=== PATIENT | female | born 1940 | race Caucasian/White ===

== ENCOUNTER 2017-07-05 11:32 | Emergency (ER) | payer BC, OTHER ==
[~2017-07-05] VITALS: Ht 162.6 cm; Wt 62.8 kg
[2017-07-05 11:40] VITALS: TEMP 37.2; Ht 162.6 cm; Wt 62.8 kg
[2017-07-05] MEDS ORDERED: SODIUM CHLORIDE 0.9% 1000ML 500 ML IV STA (11:48)
[2017-07-05] MEDS ORDERED: ALBUT/IPRATROP 3MG/0.5MG NEB 3 ML VIAL INH STA (11:48)
[2017-07-05] MEDS ORDERED: BENZONATATE 100MG CAP PO ONE (12:00)
--- NOTE | 2017-07-05 12:03 | EMERGENCY ROOM VISIT NOTE ---
History Report prepared by Chandrika: Phoebe Fletcher Under the Supervision of: Dr. Jerel Sparks M.D. First contact with patient: 11:45 Chief Complaint: FLU LIKE SX Stated Complaint: FLU History of Present Illness The patient is a 77 year old female who presents to the Emergency Room with complaints of worsening flu-like symptoms beginning six days ago. The patient reports a productive cough with yellow mucus, nasal congestion, left ear pain, and a low grade fever. She denies any shortness of breath. She states she has not been drinking a lot fluids over the past six days. The patient states her symptoms worsen at night. The patient states she had a flu shot this year. She states she has had some sick contacts. The patient denies any history of asthma , pneumonia, or COPD. Source of History: patient Onset: six days ago Position: other (generalized) Quality: other (flu like symptoms) Timing: worsening Modifying Factors (Worsening): other (at night time) Associated Symptoms: + fevers, + cough, No SOB Review of Systems See HPI for pertinent positives & negatives. A total of 10 systems reviewed and were otherwise negative. Past Medical & Surgical Medical Problems: (1) No Known Active Medical Problems Family History Patient reports no known family medical history. Social History Smoking Status: Former Smoker Marital Status: single Housing Status: lives with significant other Current/Historical Medications Scheduled Albuterol Hfa (Ventolin Hfa), 2 PUFFS INH Q4 Azithromycin (Zithromax Z-Ulisses), 0 PO UD Benzonatate (Tessalon Perles), 100 MG PO TID Esomeprazole Magnesium (Nexium), 40 MG PO DAILY Losartan Potassium (Cozaar), 1 TAB PO DAILY Multiple Vitamin (Multivitamin), 1 TAB PO DAILY Piroxicam (Piroxicam), 1 CAP PO DAILY Rosuvastatin Calcium (Crestor), 1 TAB PO DAILY Miscellaneous Medications Saxagliptin-Metformin HCl (Kombiglyze Xr) Allergies Coded Allergies: Epinephrine (Unverified Allergy, Unknown, unknown, 07/05/17) Physical Exam Vital Signs Date Time Temp Pulse Resp B/P (MAP) Pulse Ox O2 Delivery O2 Flow Rate FiO2 07/05/17 14:30 82 16 146/68 95 07/05/17 12:49 83 07/05/17 12:45 78 18 138/87 96 Room Air 07/05/17 11:40 37.2 90 18 150/76 93 Room Air Physical Exam GENERAL: Patient is in no acute distress. HEENT: No acute trauma, normocephalic atraumatic, mucous membranes moist, no nasal congestion, no scleral icterus. No throat erythema or exudate, TM clear bilaterally. NECK: No stridor, no adenopathy, no meningismus, trachea is midline. LUNGS: Scattered wheezing bilaterally, breath sounds equal, no crackles, no reparatory distress. HEART: Without murmurs gallops or rubs, regular rate and rhythm. ABDOMEN: Soft, nontender, bowel sounds positive, no hernias, no peritonitis. EXTREMITIES: No cyanosis or edema, full range of motion of all the joints without pain or difficulty, no signs for acute trauma. NEUROLOGIC: Oriented x 3, no acute motor or sensory deficits, no focal weakness. SKIN: No rash, no jaundice, no diaphoresis. Medical Decision & Procedures ER Provider Diagnostic Interpretation: Radiology results as stated below per my review and radiologist interpretation: CHEST ONE VIEW PORTABLE FINDINGS: Atherosclerosis of the aortic arch. Cardiac silhouette normal in size. Lungs and pleural spaces clear. Osseous structures normal. Upper abdomen normal. IMPRESSION: 1. No acute cardiopulmonary disease. Electronically signed by: Lázaro Pizarro M.D. Laboratory Results 07/05/17 12:22 Red Blood Count 4.47, Mean Corpuscular Volume 95.1, Mean Corpuscular Hemoglobin 33.1, Mean Corpuscular Hemoglobin Concent 34.8, Mean Platelet Volume 9.8, Neutrophils (%) (Auto) 77.4, Lymphocytes (%) (Auto) 12.0, Monocytes (%) (Auto) 9.6, Eosinophils (%) (Auto) 0.2, Basophils (%) (Auto) 0.4, Neutrophils # (Auto) 7.96, Lymphocytes # (Auto) 1.23, Monocytes # (Auto) 0.99, Eosinophils # (Auto) 0.02, Basophils # (Auto) 0.04 07/05/17 12:22 Test 07/05/17 00:00 07/05/17 12:22 Influenza Type A Antigen Neg for Influ A (NEG) Influenza Type B Antigen Neg for Influ B (NEG) White Blood Count 10.28 K/uL (4.8-10.8) Red Blood Count 4.47 M/uL (4.2-5.4) Hemoglobin 14.8 g/dL (12.0-16.0) Hematocrit 42.5 % (37-47) Mean Corpuscular Volume 95.1 fL (80-100) Mean Corpuscular Hemoglobin 33.1 pg (25-34) Mean Corpuscular Hemoglobin Concent 34.8 g/dl (32-36) Platelet Count 204 K/uL (130-400) Mean Platelet Volume 9.8 fL (7.4-10.4) Neutrophils (%) (Auto) 77.4 % Lymphocytes (%) (Auto) 12.0 % Monocytes (%) (Auto) 9.6 % Eosinophils (%) (Auto) 0.2 % Basophils (%) (Auto) 0.4 % Neutrophils # (Auto) 7.96 K/uL (1.4-6.5) Lymphocytes # (Auto) 1.23 K/uL (1.2-3.4) Monocytes # (Auto) 0.99 K/uL (0.11-0.59) Eosinophils # (Auto) 0.02 K/uL (0-0.5) Basophils # (Auto) 0.04 K/uL (0-0.2) RDW Standard Deviation 40.0 fL (36.4-46.3) RDW Coefficient of Variation 11.6 % (11.5-14.5) Immature Granulocyte % (Auto) 0.4 % Immature Granulocyte # (Auto) 0.04 K/uL (0.00-0.02) Anion Gap 8.0 mmol/L (3-11) Est Creatinine Clear Calc Drug Dose 46.5 ml/min Estimated GFR () 73.0 Estimated GFR (Non- 63.0 BUN/Creatinine Ratio 18.7 (10-20) Calcium Level 9.3 mg/dl (8.5-10.1) Magnesium Level 2.4 mg/dl (1.8-2.4) Troponin I < 0.015 ng/ml (0-0.045) Laboratory results reviewed by me. Medications Administered Medications (Trade) Dose Ordered Sig/Nasrin Route Start Time Stop Time Status Last Admin Dose Admin Sodium Chloride 500 ml @ 999 mls/hr Q31M STAT IV 07/05/17 11:48 07/05/17 12:18 DC 07/05/17 12:59 999 MLS/HR Albuterol/ Ipratropium (Duoneb) 3 ml NOW STAT INH 07/05/17 11:48 07/05/17 11:53 DC 07/05/17 12:58 3 ML Benzonatate (Tessalon Perles Cap) 100 mg NOW ONCE PO 07/05/17 12:00 07/05/17 12:01 DC 07/05/17 12:59 100 MG Sodium Chloride 500 ml @ 999 mls/hr Q31M STAT IV 07/05/17 13:11 07/05/17 13:41 DC 07/05/17 13:59 999 MLS/HR Albuterol (Ventolin Hfa Inhaler) 2 puffs NOW ONCE INH 07/05/17 13:15 07/05/17 13:16 DC 07/05/17 13:59 2 PUFFS ECG Indication: SOB/dyspnea Rate (beats per minute): 80 Rhythm: normal sinus Findings: no acute ischemic change, no ectopy Change: EKG interpreted by me. ED Course 1146: The patient was evaluated in room C11B. A complete history and physical exam was performed. 1148: Ordered Duoneb 3 ml INH, Sodium Chloride 500 ml @ 999 mls/hr IV. 1200: Ordered Benzonatate 100 mg PO. 1311: Ordered Sodium Chloride 500 ml @ 999 mls/hr IV. 1315: Ordered Albuterol 2 puffs INH. 1336: I updated the patient on her test results. She is resting comfortably. 1347: Reevaluated the patient. Discussed results and discharge instructions: She verbalized understanding and agreement. The patient is ready for discharge. Medical Decision Differential diagnoses: bronchitis, pneumonia, CHF, influenza or flu-like symptoms, dehydration, otitis media, cardiac ischemia . There is no leukocytosis or worrisome anemia. No significant electrolyte abnormality or kidney failure. I did note a mildly elevated blood sugar, this value should be followed as an outpatient but I do not think has any bearing on her presentation today. Influenza testing was negative. Chest film does not show pneumonia or pneumothorax, no CHF. Blood cultures are pending. EKG shows a normal sinus rhythm, no acute ischemia. Cardiac enzyme testing times one is not consistent with acute cardiac injury. The patient received a DuoNeb, albuterol via MDI. She was given IV saline and oral Tessalon. The patient is not hypoxic. She is not toxic. She is being discharged with albuterol, Tessalon Perles, rest and hydration. As she has been sick for about one week, I will also prescribe antibiotics. She appears at this point to have an acute bronchitis. If worsening, she should return. Medication Reconcilliation Current Medication List: was personally reviewed by me Blood Pressure Screening Patient's blood pressure: Elevated blood pressure Blood pressure disposition: Referred to PCP Impression Primary Impression: Acute bronchitis Additional Impression: Wheezing Scribe Attestation The scribe's documentation has been prepared under my direction and personally reviewed by me in its entirety. I confirm that the note above accurately reflects all work, treatment, procedures, and medical decision making performed by me. Departure Information Dispostion Home / Self-Care Prescriptions Benzonatate (TESSALON PERLES) 100 Mg Cap 100 MG PO TID, #15 CAP Prov: Jerel Sparks M.D. 07/05/17 Albuterol Hfa (VENTOLIN HFA) 200 Puffs/20361 Mcg Aers 2 PUFFS INH Q4, #1 INHALER Prov: Jerel Sparks M.D. 07/05/17 Azithromycin (ZITHROMAX Z-ULISSES) 250 Mg Tab 0 PO UD, #1 PKT Prov: Jerel Sparks M.D. 07/05/17 Referrals Sol Jameson M.D. (PCP) Forms HOME CARE DOCUMENTATION FORM, IMPORTANT VISIT INFORMATION Patient Instructions My [facility] Additional Instructions zpa as directed albuterol 2 puffs every 4 hours fluids rest tessalon perles 1 tab up to 3x per day for cough return for worsening symptoms, worsening breathing, vomiting see hardik lebron this week for a recheck have your doctor recheck your blood sugar--it was a little high today Problem Qualifiers
--- NOTE | 2017-07-05 12:25 | DIAGNOSTIC IMAGING REPORT ---
CHEST ONE VIEW PORTABLE CLINICAL HISTORY: 77 years-old Female presenting with EVALUATE RESPIRATORY DISTRESS.DYSPNEA. TECHNIQUE: Portable upright AP view of the chest was obtained. COMPARISON: None. FINDINGS: Atherosclerosis of the aortic arch. Cardiac silhouette normal in size. Lungs and pleural spaces clear. Osseous structures normal. Upper abdomen normal. IMPRESSION: 1. No acute cardiopulmonary disease. Electronically signed by: Lázaro Pizarro M.D. 07/05/2017 12:23 PM Dictated Date/Time: 07/05/2017 12:22 PM
[2017-07-05] MEDS ORDERED: ROSU5TAB PO (12:49)
[2017-07-05] MEDS ORDERED: NXM/40 PO (12:49)
[2017-07-05] MEDS ORDERED: LOSA1TAB PO (12:50)
[2017-07-05] MEDS ORDERED: SAXA1TAB5 (12:50)
[2017-07-05] MEDS ORDERED: MULTTAB58 PO (12:50)
[2017-07-05] MEDS ORDERED: PIRO-104 PO (12:50)
[2017-07-05 12:54] LABS: BASO % 0.4 %; BASO ABS # 0.04 K/uL (0-0.2); EOS % 0.2 %; EOS ABS # 0.02 K/uL (0-0.5); HEMATOCRIT 42.5 % (37-47); HEMOGLOBIN 14.8 g/dL (12.0-16.0); IG# 0.04 K/uL (0.00-0.02); LYMPH ABS # 1.23 K/uL (1.2-3.4); MEAN CELL VOLUME 95.1 fL (80-100); MEAN CORPUSCULAR HEMOGLOBIN 33.1 pg (25-34); MEAN CORPUSCULAR HGB CONC 34.8 g/dl (32-36); MEAN PLATELET VOLUME 9.8 fL (7.4-10.4); MONO % 9.6 %; MONO ABS # 0.99 K/uL (0.11-0.59); NEUT % 77.4 %; NEUT ABS # 7.96 K/uL (1.4-6.5); PLATELET COUNT 204 K/uL (130-400); RED CELL DISTRIBUTION WIDTH CV 11.6 % (11.5-14.5); WHITE BLOOD COUNT 10.28 K/uL (4.8-10.8)
[2017-07-05 13:01] LABS: INFLUENZA B ANTIGEN Neg for Influ B (NEG)
[2017-07-05 13:07] LABS: BLOOD UREA NITROGEN 17 mg/dl (7-18); CALCIUM 9.3 mg/dl (8.5-10.1); CARBON DIOXIDE 28 mmol/L (21-32); CREATININE 0.89 mg/dl (0.60-1.20); GLUCOSE 207 mg/dl (70-99); POTASSIUM 3.8 mmol/L (3.5-5.1); SODIUM 133 mmol/L (136-145)
[2017-07-05] MEDS ORDERED: SODIUM CHLORIDE 0.9% 500ML 500 ML IV STA (13:11)
[2017-07-05] MEDS ORDERED: ALBUTEROL HFA 8 GM INHALER INH ONE (13:15)
[2017-07-05] MEDS ORDERED: AZITTAB PO (13:42)
[2017-07-05] MEDS ORDERED: VNTHFA/IN INH (13:42)
[2017-07-05] MEDS ORDERED: BENZ100C18 PO (13:42)
[2017-07-05 14:30] VITALS: BP 146/68; PULSE 82; O2SAT 95
== END 2017-07-05 14:29 | disposition home or self-care (01) ==
LOC: C.EDB 11:33 → C.EDC 14:29
DX: J20.9 Acute bronchitis, unspecified (principal); R73.9 Hyperglycemia, unspecified; R03.0 Elevated blood-pressure reading, without diagnosis of hypertension; Z87.891 Personal history of nicotine dependence

== ENCOUNTER 2022-06-22 15:48 | Observation (INO) ==
--- NOTE | 2022-06-22 16:31 | Emergency Department Note ---
Impression & Plan Chest pain, Near syncope, Bilateral pneumonia ED Provider Note ED Provider Note NAME: SWETA VILLASEÑOR AGE:82 SEX: Female : 1940 ARRIVES VIA: Ambulance INFORMANT: Patient ED PROVIDER(s): Veronica Smith DO CHIEF COMPLAINT: Chest pain HPI: This is an 82-year-old female brought in by ambulance due to concern for chest pain. Patient states she has been sick since shortly after Ariana. She states she was seen and evaluated here last week and diagnosed with bronchitis. She states she was started on antibiotics and steroids and discharged home. She states she has continued to have increased fatigue. She states today while out running errands with her who she cares for because he is demented, she began feeling more fatigued as though she may pass out. She states while driving home she began develop chest pressure. She denies any actual loss of consciousness. She contacted family who then called 911. Patient states she did take 2 low-dose aspirin prior to EMS arrival, and EMS gave her additional aspirin in route. By time of arrival here, chest pressure had resolved. She denies any radiation of the pain, any accompanying shortness of breath or diaphoresis. She denies any nausea. No prior cardiac history. PAST MEDICAL HISTORY:See Below PAST SURGICAL HISTORY:See Below FAMILY HISTORY:See Below SOCIAL HISTORY:See Below HOME MEDICATIONS:See Below ALLERGIES:See Below VITALS:See Below PHYSICAL EXAMINATION: GENERAL: alert, well appearing, well nourished, no distress, non-toxic EYE EXAM: normal conjunctiva, PERRL and EOM's grossly intact OROPHARYNX: no exudate, no erythema, lips, buccal mucosa, and tongue normal and mucous membranes are moist NECK: supple, no nuchal rigidity, no adenopathy, non-tender LUNGS: Clear to auscultation. Normal chest wall mechanics, no w/r/r, no increased work of breathing, no tachypnea HEART: no murmurs, S1 normal and S2 normal, no reproducible tenderness with palpation along the chest wall ABDOMEN: abdomen soft, non-tender, normo-active bowel sounds, no masses, no rebound or guarding. BACK: Back is symmetrical on inspection and there is no deformity, no midline tenderness, no CVA tenderness. SKIN: no rashes, petechiae, orbruising UPPER EXTREMITIES: upper extremities are grossly normal. FROM, nml pulses b/l. LOWER EXTREMITIES: No pitting edema. FROM, nml pulses b/l. NEURO EXAM: Normal sensorium, cranial nerves II-XII grossly intact, normal speech, no facial droop,nogross weakness of arms, no gross weakness of legs. Gross sensation intact. No ataxia. Vital Signs: reviewed and remarkable Differential Diagnosis: Differential diagnoses includes but is not limited to acute coronary syndrome, myocardial infarction, pericarditis, pulmonary embolus, aortic dissection, pneumonia, pneumothorax, musculoskeletal, shingles, esophageal. MEDICAL DECISION MAKING: CURB 65 - moderate risk This is an 82-year-old female presents emergency department due to concern for chest pressure and near syncope today. Patient seen and evaluated recent and diagnosed with bronchitis versus early pneumonia and started on antibiotics and steroids. Symptoms had improved by the time of my evaluation here. Labs drawn and sent, IV established, patient monitored on telemetry. EKG performed. After discussion at bedside and review of prior visit in EMR with patient and family at bedside, we discussed possible differential diagnosis. Patient with no prior cardiac history. Exam not consistent with acute CHF, EKG interpreted by me without acute changes to suggest ACS. Patient found to have elevated D-dimer and elevated BNP. Troponin mildly elevated also. Patient sent for CT chest which showed bilateral pneumonia. Due to advanced age and elevated curb 65 score, symptoms today including chest pressure and near syncope, and symptoms following more than 48 hours of antibiotics at this time, we discussed additional inpatient evaluation and management as a precaution. Patient and family verbalized understanding and were in agreement with the plan. Case discussed with hospitalist for additional evaluation and management. Consultation(s): 2229: Discussed with Dr. Lamb for admission. ER Treatment Provided: See below Diagnostics Interpreted By Me: -ECG: Normal sinus at 69, normal QRS and QTc, normal axis, no acute ST/T wave changes, aberrant baseline noted -Cardiac Monitoring: An order was placed for continuous cardiac monitoring. The monitor shows a rate of 72 with normal sinus rhythm. -Laboratory studies: As stated above and show below. -Imaging studies: CT chest Triage Nursing Note Reviewed Prior/Outside Records Reviewed Procedures: [] Critical Care: [] Past Med/Surg History Medical History Hypertension Type 2 diabetes mellitus Family History Other Family history non-contributory Social History Smoking Status: Former smoker Second Hand Exposure: No; Hx Alcohol Use: No Hx Substance Use: No Preferred Language: Persian Communication Ability: Effective Cargo Router Required: No Beliefs That Will Affect Care: None Current Living Situation: Spouse Feels Safe at Home: Yes Assistive Devices: Denture - Upper Allergies Allergies Allergy/AdvReac Type Severity Reaction Status Date / Time epinephrine Allergy SVT Unverified 06/22/22 16:15 Home Meds Home Medications Medication Instructions Recorded Confirmed cholecalciferol (vitamin D3) 50 50 mcg PO BID 06/20/22 06/22/22 mcg (2,000 unit) tablet (Vitamin D3) losartan 50 mg tablet 50 mg PO QAM 06/20/22 06/22/22 sitagliptin phosphate 50 mg tablet 50 mg PO DAILY 06/20/22 06/22/22 (Januvia) Previous Rx's Medication Instructions Recorded aspirin 81 mg tablet,delayed 81 mg PO QAM 30 days #30 tabs 06/23/22 release benzonatate 100 mg capsule 100 mg PO TID #30 caps 06/23/22 doxycycline hyclate 100 mg capsule 100 mg PO BID 8 days #16 caps 06/23/22 Results & Data (ED) Vital Signs Vital Signs - 24 hr 06/22/22 16:02 06/22/22 16:02 06/22/22 16:10 Temperature 36.8 C Temperature Source Oral Pulse Rate 94 H 86 78 Pulse Rate from SpO2 Sensor 85 79 Pulse Rhythm Regular Pulse Strength Normal Respiratory Rate 18 19 16 Respiratory Effort / Characteristics Non-Labored Spontaneous Respiratory Depth Normal Respiratory Pattern Regular Blood Pressure 181/78 H Blood Pressure Mean 112 Blood Pressure Position Lying Pulse Oximetry 96 97 96 Oxygen Delivery Method Room Air Room Air Room Air Sepsis Recent Fever Within 48 Hours No Sepsis New/Unexplained Change in Mental Status No Sepsis Action Taken by Nursing No Action Required 06/22/22 16:20 06/22/22 16:30 06/22/22 16:30 Temperature Temperature Source Pulse Rate 72 74 Pulse Rate from SpO2 Sensor 73 Pulse Rhythm Pulse Strength Respiratory Rate 17 16 Respiratory Effort / Characteristics Respiratory Depth Respiratory Pattern Blood Pressure 147/67 H Blood Pressure Mean 93 Blood Pressure Position Pulse Oximetry 95 Oxygen Delivery Method Room Air Sepsis Recent Fever Within 48 Hours Sepsis New/Unexplained Change in Mental Status Sepsis Action Taken by Nursing 06/22/22 16:40 06/22/22 16:50 06/22/22 17:00 Temperature Temperature Source Pulse Rate 78 76 73 Pulse Rate from SpO2 Sensor 78 74 Pulse Rhythm Pulse Strength Respiratory Rate 24 15 20 Respiratory Effort / Characteristics Respiratory Depth Respiratory Pattern Blood Pressure Blood Pressure Mean Blood Pressure Position Pulse Oximetry 95 96 Oxygen Delivery Method Sepsis Recent Fever Within 48 Hours Sepsis New/Unexplained Change in Mental Status Sepsis Action Taken by Nursing 06/22/22 17:10 06/22/22 17:20 06/22/22 17:33 Temperature Temperature Source Pulse Rate 72 72 81 Pulse Rate from SpO2 Sensor 79 Pulse Rhythm Pulse Strength Respiratory Rate 22 13 20 Respiratory Effort / Characteristics Respiratory Depth Respiratory Pattern Blood Pressure Blood Pressure Mean Blood Pressure Position Pulse Oximetry 96 Oxygen Delivery Method Sepsis Recent Fever Within 48 Hours Sepsis New/Unexplained Change in Mental Status Sepsis Action Taken by Nursing 06/22/22 17:34 06/22/22 17:34 06/22/22 17:40 Temperature Temperature Source Pulse Rate 72 77 Pulse Rate from SpO2 Sensor 72 74 Pulse Rhythm Pulse Strength Respiratory Rate 16 16 Respiratory Effort / Characteristics Respiratory Depth Respiratory Pattern Blood Pressure 177/72 H Blood Pressure Mean 107 Blood Pressure Position Pulse Oximetry 96 96 Oxygen Delivery Method Sepsis Recent Fever Within 48 Hours Sepsis New/Unexplained Change in Mental Status Sepsis Action Taken by Nursing 06/22/22 17:50 06/22/22 18:00 06/22/22 18:00 Temperature Temperature Source Pulse Rate 67 67 Pulse Rate from SpO2 Sensor 68 Pulse Rhythm Pulse Strength Respiratory Rate 17 14 Respiratory Effort / Characteristics Respiratory Depth Respiratory Pattern Blood Pressure 145/71 H Blood Pressure Mean 95 Blood Pressure Position Pulse Oximetry 95 95 Oxygen Delivery Method Sepsis Recent Fever Within 48 Hours Sepsis New/Unexplained Change in Mental Status Sepsis Action Taken by Nursing 06/22/22 18:10 06/22/22 18:20 06/22/22 18:30 Temperature Temperature Source Pulse Rate 74 77 Pulse Rate from SpO2 Sensor 74 77 Pulse Rhythm Pulse Strength Respiratory Rate 19 20 Respiratory Effort / Characteristics Respiratory Depth Respiratory Pattern Blood Pressure 151/74 H Blood Pressure Mean 99 Blood Pressure Position Pulse Oximetry 95 95 Oxygen Delivery Method Sepsis Recent Fever Within 48 Hours Sepsis New/Unexplained Change in Mental Status Sepsis Action Taken by Nursing 06/22/22 18:30 06/22/22 18:40 06/22/22 18:50 Temperature Temperature Source Pulse Rate 72 73 84 Pulse Rate from SpO2 Sensor 71 73 85 Pulse Rhythm Pulse Strength Respiratory Rate 19 15 15 Respiratory Effort / Characteristics Respiratory Depth Respiratory Pattern Blood Pressure Blood Pressure Mean Blood Pressure Position Pulse Oximetry 95 95 94 Oxygen Delivery Method Sepsis Recent Fever Within 48 Hours Sepsis New/Unexplained Change in Mental Status Sepsis Action Taken by Nursing 06/22/22 19:00 06/22/22 19:00 06/22/22 19:30 Temperature Temperature Source Pulse Rate 77 Pulse Rate from SpO2 Sensor 78 Pulse Rhythm Pulse Strength Respiratory Rate 26 H Respiratory Effort / Characteristics Respiratory Depth Respiratory Pattern Blood Pressure 135/67 155/70 H Blood Pressure Mean 89 98 Blood Pressure Position Pulse Oximetry 95 Oxygen Delivery Method Sepsis Recent Fever Within 48 Hours Sepsis New/Unexplained Change in Mental Status Sepsis Action Taken by Nursing 06/22/22 19:30 06/22/22 19:40 06/22/22 19:50 Temperature Temperature Source Pulse Rate 72 72 79 Pulse Rate from SpO2 Sensor 73 72 79 Pulse Rhythm Pulse Strength Respiratory Rate 10 L 18 20 Respiratory Effort / Characteristics Respiratory Depth Respiratory Pattern Blood Pressure Blood Pressure Mean Blood Pressure Position Pulse Oximetry 95 95 95 Oxygen Delivery Method Sepsis Recent Fever Within 48 Hours Sepsis New/Unexplained Change in Mental Status Sepsis Action Taken by Nursing 06/22/22 20:00 06/22/22 20:00 06/22/22 20:10 Temperature Temperature Source Pulse Rate 72 75 Pulse Rate from SpO2 Sensor 72 74 Pulse Rhythm Pulse Strength Respiratory Rate 17 17 Respiratory Effort / Characteristics Respiratory Depth Respiratory Pattern Blood Pressure 141/72 H Blood Pressure Mean 95 Blood Pressure Position Pulse Oximetry 94 94 Oxygen Delivery Method Sepsis Recent Fever Within 48 Hours Sepsis New/Unexplained Change in Mental Status Sepsis Action Taken by Nursing 06/22/22 20:20 06/22/22 20:30 06/22/22 20:30 Temperature Temperature Source Pulse Rate 79 79 Pulse Rate from SpO2 Sensor Pulse Rhythm Pulse Strength Respiratory Rate 19 19 Respiratory Effort / Characteristics Respiratory Depth Respiratory Pattern Blood Pressure 150/86 H Blood Pressure Mean 107 Blood Pressure Position Pulse Oximetry Oxygen Delivery Method Sepsis Recent Fever Within 48 Hours Sepsis New/Unexplained Change in Mental Status Sepsis Action Taken by Nursing 06/22/22 20:40 06/22/22 20:50 06/22/22 21:00 Temperature Temperature Source Pulse Rate 81 85 Pulse Rate from SpO2 Sensor Pulse Rhythm Pulse Strength Respiratory Rate 19 14 Respiratory Effort / Characteristics Respiratory Depth Respiratory Pattern Blood Pressure 129/67 Blood Pressure Mean 87 Blood Pressure Position Pulse Oximetry Oxygen Delivery Method Sepsis Recent Fever Within 48 Hours Sepsis New/Unexplained Change in Mental Status Sepsis Action Taken by Nursing 06/22/22 21:00 Temperature Temperature Source Pulse Rate 81 Pulse Rate from SpO2 Sensor Pulse Rhythm Pulse Strength Respiratory Rate 18 Respiratory Effort / Characteristics Respiratory Depth Respiratory Pattern Blood Pressure Blood Pressure Mean Blood Pressure Position Pulse Oximetry Oxygen Delivery Method Sepsis Recent Fever Within 48 Hours Sepsis New/Unexplained Change in Mental Status Sepsis Action Taken by Nursing Laboratory Data 06/22/22 16:48 06/22/22 16:48 Lab Results 06/22/22 06/22/22 06/22/22 Range/Units 16:48 16:48 16:48 WBC 17.01 H (4.8-10.8) K/ul RBC 3.93 (3.93-5.22) M/uL Hgb 12.7 (12.0-16.0) g/dl Hct 37.3 (34.1-44.9) % MCV 94.9 (80.0-100.0) fL MCH 32.3 (25.0-34.0) pg MCHC 34.0 (32.0-36.0) g/dL RDW Std Deviation 39.2 (36.4-46.3) fL RDW Coeff of Randy 11.2 L (11.5-14.5) % Plt Count 357 (130-400) K/uL MPV 9.0 L (9.4-12.3) fL Immature Gran % (Auto) 0.8 % Neut % (Auto) 76.0 % Lymph % (Auto) 15.6 % Stanley % (Auto) 7.1 % Eos % (Auto) 0.2 % Baso % (Auto) 0.3 % Neut # (Auto) 12.93 H (1.4-6.5) K/uL Lymph # (Auto) 2.65 (1.2-3.4) K/uL Stanley # (Auto) 1.21 H (0.24-0.82) K/uL Eos # (Auto) 0.03 (0-0.50) K/uL Baso # (Auto) 0.05 (0-0.2) K/uL Immature Gran # (Auto) 0.14 H (0.00-0.02) K/uL D-Dimer 1850 H* (0-500) ug/L FEU Sodium 139 (136-145) mmol/L Potassium 3.8 (3.5-5.1) mmol/L Chloride 104 (98-107) mmol/L Carbon Dioxide 28 (21-32) mmol/L Anion Gap 7 (3-11) BUN 28 H (6-23) mg/dl Creatinine 1.04 (0.6-1.2) mg/dl Est Cr Clr Drug Dosing 36.6 ml/min Est GFR ( Amer) 58.4 ml/min Est GFR (Non-Af Amer) 50.3 ml/min BUN/Creatinine Ratio 26.9 H (10-20) Glucose 112 H (70-99(Fasting)) mg/dl Calcium 9.4 (8.5-10.1) mg/dl Magnesium 2.1 (1.7-2.4) mg/dl Total Bilirubin 0.3 (0.2-1.0) mg/dl AST 26 (13-39) U/L ALT 25 (7-52) U/L Alkaline Phosphatase 80 (34-104) U/L Troponin I High Sens 15.2 H (0-14) pg/ml B-Natriuretic Peptide (0-100) pg/ml Total Protein 7.4 (6.0-8.3) gm/dl Albumin 3.8 (3.4-5.0) gm/dl Globulin 3.6 (2.5-4.0) gm/dl Albumin/Globulin Ratio 1.1 (0.9-2) Lipase 27 (11-82) U/L Procalcitonin (0-0.5) ng/ml TSH (0.300-4.500) uIu/ml Free T4 (0.61-1.60) ng/dl SARS-CoV-2 (PCR) (Negative) Influenza Type A (PCR) (Neg) Influenza Type B (PCR) (Neg) RSV (RT-PCR) (Neg) 06/22/22 06/22/22 06/22/22 Range/Units 16:48 16:48 16:48 WBC (4.8-10.8) K/ul RBC (3.93-5.22) M/uL Hgb (12.0-16.0) g/dl Hct (34.1-44.9) % MCV (80.0-100.0) fL MCH (25.0-34.0) pg MCHC (32.0-36.0) g/dL RDW Std Deviation (36.4-46.3) fL RDW Coeff of Randy (11.5-14.5) % Plt Count (130-400) K/uL MPV (9.4-12.3) fL Immature Gran % (Auto) % Neut % (Auto) % Lymph % (Auto) % Stanley % (Auto) % Eos % (Auto) % Baso % (Auto) % Neut # (Auto) (1.4-6.5) K/uL Lymph # (Auto) (1.2-3.4) K/uL Stanley # (Auto) (0.24-0.82) K/uL Eos # (Auto) (0-0.50) K/uL Baso # (Auto) (0-0.2) K/uL Immature Gran # (Auto) (0.00-0.02) K/uL D-Dimer (0-500) ug/L FEU Sodium (136-145) mmol/L Potassium (3.5-5.1) mmol/L Chloride (98-107) mmol/L Carbon Dioxide (21-32) mmol/L Anion Gap (3-11) BUN (6-23) mg/dl Creatinine (0.6-1.2) mg/dl Est Cr Clr Drug Dosing ml/min Est GFR ( Amer) ml/min Est GFR (Non-Af Amer) ml/min BUN/Creatinine Ratio (10-20) Glucose (70-99(Fasting)) mg/dl Calcium (8.5-10.1) mg/dl Magnesium (1.7-2.4) mg/dl Total Bilirubin (0.2-1.0) mg/dl AST (13-39) U/L ALT (7-52) U/L Alkaline Phosphatase (34-104) U/L Troponin I High Sens (0-14) pg/ml B-Natriuretic Peptide 275 H (0-100) pg/ml Total Protein (6.0-8.3) gm/dl Albumin (3.4-5.0) gm/dl Globulin (2.5-4.0) gm/dl Albumin/Globulin Ratio (0.9-2) Lipase (11-82) U/L Procalcitonin < 0.05 (0-0.5) ng/ml TSH 6.178 H (0.300-4.500) uIu/ml Free T4 1.08 (0.61-1.60) ng/dl SARS-CoV-2 (PCR) (Negative) Influenza Type A (PCR) (Neg) Influenza Type B (PCR) (Neg) RSV (RT-PCR) (Neg) 06/22/22 Range/Units 21:21 WBC (4.8-10.8) K/ul RBC (3.93-5.22) M/uL Hgb (12.0-16.0) g/dl Hct (34.1-44.9) % MCV (80.0-100.0) fL MCH (25.0-34.0) pg MCHC (32.0-36.0) g/dL RDW Std Deviation (36.4-46.3) fL RDW Coeff of Randy (11.5-14.5) % Plt Count (130-400) K/uL MPV (9.4-12.3) fL Immature Gran % (Auto) % Neut % (Auto) % Lymph % (Auto) % Stanley % (Auto) % Eos % (Auto) % Baso % (Auto) % Neut # (Auto) (1.4-6.5) K/uL Lymph # (Auto) (1.2-3.4) K/uL Stanley # (Auto) (0.24-0.82) K/uL Eos # (Auto) (0-0.50) K/uL Baso # (Auto) (0-0.2) K/uL Immature Gran # (Auto) (0.00-0.02) K/uL D-Dimer (0-500) ug/L FEU Sodium (136-145) mmol/L Potassium (3.5-5.1) mmol/L Chloride (98-107) mmol/L Carbon Dioxide (21-32) mmol/L Anion Gap (3-11) BUN (6-23) mg/dl Creatinine (0.6-1.2) mg/dl Est Cr Clr Drug Dosing ml/min Est GFR ( Amer) ml/min Est GFR (Non-Af Amer) ml/min BUN/Creatinine Ratio (10-20) Glucose (70-99(Fasting)) mg/dl Calcium (8.5-10.1) mg/dl Magnesium (1.7-2.4) mg/dl Total Bilirubin (0.2-1.0) mg/dl AST (13-39) U/L ALT (7-52) U/L Alkaline Phosphatase (34-104) U/L Troponin I High Sens (0-14) pg/ml B-Natriuretic Peptide (0-100) pg/ml Total Protein (6.0-8.3) gm/dl Albumin (3.4-5.0) gm/dl Globulin (2.5-4.0) gm/dl Albumin/Globulin Ratio (0.9-2) Lipase (11-82) U/L Procalcitonin (0-0.5) ng/ml TSH (0.300-4.500) uIu/ml Free T4 (0.61-1.60) ng/dl SARS-CoV-2 (PCR) NEGATIVE (Negative) Influenza Type A (PCR) Negative (Neg) Influenza Type B (PCR) Negative (Neg) RSV (RT-PCR) Negative (Neg) Administered Medications Discontinued Medications Aspirin (Aspirin 81 Mg Ectab) 81 mg PO QAM [facility] Stop: 07/23/22 08:59 Last Admin: 06/23/22 11:25 Dose: 81 mg Documented By: AM Doxycycline Hyclate (Doxycycline Hyclate 100 Mg Cap) 100 mg PO BID [facility] Stop: 06/30/22 08:59 Last Admin: 06/23/22 11:25 Dose: 100 mg Documented By: AM Enoxaparin Sodium (Enoxaparin Inj 30 Mg/0.3 Ml Syr) 30 mg SQ QAM [facility] Stop: 07/23/22 08:59 Last Admin: 06/23/22 11:28 Dose: 30 mg Documented By: AM Sodium Chloride (Nss) 500 mls @ 125 mls/hr IV .Q4H [facility] Stop: 07/22/22 16:29 Last Admin: 06/23/22 02:01 Dose: Not Given Documented By: Infusion: 06/22/22 21:04 Dose: 0 mls/hr Documented By: Admin: 06/22/22 16:57 Dose: 125 mls/hr Documented By: PHILLIP Ceftriaxone Sodium 1,000 mg/ (Dextrose) 50 mls @ 100 mls/hr IV NOW STA Stop: 06/22/22 21:47 Last Infusion: 06/23/22 02:23 Dose: 0 mls/hr Documented By: wet suit gluer: 06/23/22 00:35 Dose: 100 mls/hr Documented By: BOBBI Sodium Chloride (Nss) 500 mls @ 60 mls/hr IV .Q8H20M ONE Stop: 06/23/22 06:37 Last Infusion: 06/23/22 02:22 Dose: 0 mls/hr Documented By: wet suit gluer: 06/23/22 01:26 Dose: 60 mls/hr Documented By: BOBBI Insulin Aspart (Insulin Aspart Per Unit) 0 units SC Q6 MARIO Stop: 07/23/22 00:31 Last Admin: 06/23/22 13:37 Dose: 8 units Documented By: ARNOL Co-signed By: SOUTH Admin: 06/23/22 05:48 Dose: Not Given Documented By: BOBBI Co-signed By: NETTE Admin: 06/23/22 01:34 Dose: Not Given Documented By: BOBBI Co-signed By: RICK Ioversol (Optiray 320 500ml) 114 ml IV ONCE ONE Stop: 06/22/22 19:20 Last Admin: 06/22/22 19:19 Dose: 114 ml Documented By: SERGE Losartan Potassium (Losartan Potassium 50 Mg Tab) 50 mg PO QAM [facility] Stop: 07/23/22 08:59 Last Admin: 06/23/22 11:26 Dose: 50 mg Documented By: AM Imaging Data Radiologist's Impression: Chest X-Ray 06/22/22 16:22 XR chest 1V portable HISTORY: chest pressure COMPARISON: Chest 06/20/2022. FINDINGS: No pneumothorax. No pleural effusions. No pneumothorax. No pleural effusions. No focal lung consolidations to suggest a pneumonia. No evidence for pulmonary edema. The heart is normal in size. Degenerative changes again noted within the shoulders. IMPRESSION: No acute process. ACT 112: Negative or not required by law. Electronically signed by: Saturnino Moseley M.D. 06/22/2022 5:14 PM Chest CTA 06/22/22 18:08 CT angio chest PE protocol CLINICAL HISTORY: PE TECHNIQUE: Multidetector row helical CT of the chest was performed with angiographic protocol. Coronal and sagittal reformations were obtained. Coronal and sagittal MIPS were obtained from the axial data set and were submitted for review. Automated dose lowering techniques and/or adjustment according to patient size were utilized for this exam. CT DOSE: 250.86 mGy.cm Comparison: Comparison is made to chest radiograph 06/22/2022 FINDINGS: Lungs and pleura: Biapical scarring is seen. Groundglass and consolidative opacities are seen in the left upper lobe and to a lesser extent in the right upper lobe. Heart and pericardium: Heart size is normal. No pericardial effusion. Vessels: No evidence of pulmonary embolism. Mediastinum and valencia: Subcentimeter lymph nodes are seen. Chest wall and lower neck: Unremarkable. Abdomen: Unremarkable. Bones: Degenerative changes in the thoracic spine. IMPRESSION: No evidence of pulmonary embolus. Airspace opacities are seen in the left greater than right upper lobes compatible with ACT 112: Negative or not required by law. Electronically signed by: Subhash Lopez M.D. 06/22/2022 7:40 PM Discharge Plan Visit Data Chief Complaint: Illness ED Provider: Veronica Smith Discharge Problem: Chest pain, Near syncope, Bilateral pneumonia Patient Disposition: Admitted As Inpatient Condition: Good Discharge Instructions Interventions: ED Discharge Assessment Last Done: 06/23/22 00:31
[2022-06-22] MEDS: SODIUM CHLORIDE 0.9% 500 ML IV SCH (16:57)
[2022-06-22 17:04] LABS: Basophils # (auto) 0.05 K/uL (0-0.2); Basophils % (auto) 0.3 %; Eosinophils # (auto) 0.03 K/uL (0-0.50); Eosinophils % (auto) 0.2 %; Hematocrit (blood only) 37.3 % (34.1-44.9); Hemoglobin 12.7 g/dl (12.0-16.0); Immature Granulocytes # (auto) 0.14 K/uL (0.00-0.02); Immature Granulocytes % (auto) 0.8 %; Lymphocytes # (auto) 2.65 K/uL (1.2-3.4); Lymphocytes % (auto) 15.6 %; Mean Corpuscular Hemoglobin 32.3 pg (25.0-34.0); Mean Corpuscular Volume 94.9 fL (80.0-100.0); Monocytes # (auto) 1.21 K/uL (0.24-0.82); Monocytes % (auto) 7.1 %; Neutrophils # (auto) 12.93 K/uL (1.4-6.5); Platelet Count 357 K/uL (130-400); RDW Coefficient of Variation 11.2 % (11.5-14.5); RDW Standard Deviation 39.2 fL (36.4-46.3); Red Blood Count 3.93 M/uL (3.93-5.22); White Blood Count 17.01 K/ul (4.8-10.8)
--- NOTE | 2022-06-22 17:16 | XRay Report ---
XR chest 1V portable HISTORY: chest pressure COMPARISON: Chest 06/20/2022. FINDINGS: No pneumothorax. No pleural effusions. No pneumothorax. No pleural effusions. No focal lung consolidations to suggest a pneumonia. No evidence for pulmonary edema. The heart is normal in size. Degenerative changes again noted within the shoulders. IMPRESSION: No acute process. ACT 112: Negative or not required by law. Electronically signed by: Saturnino Moseley M.D. 06/22/2022 5:14 PM
[2022-06-22 17:22] LABS: D Dimer 1850 ug/L FEU (0-500)
[2022-06-22 17:37] LABS: Troponin I High Sensitivity 15.2 pg/ml (0-14)
[2022-06-22 17:38] LABS: Albumin Globulin Ratio 1.1 (0.9-2); Albumin Level 3.8 gm/dl (3.4-5.0); BUN Creatinine Ratio 26.9 (10-20); Bilirubin,Total 0.3 mg/dl (0.2-1.0); Calcium 9.4 mg/dl (8.5-10.1); Creatinine Clr Calc Pharmacy 36.6 ml/min; Est GFR (African American) 58.4 ml/min; Est GFR (Non-African American) 50.3 ml/min; Globulin 3.6 gm/dl (2.5-4.0); Magnesium 2.1 mg/dl (1.7-2.4); Potassium 3.8 mmol/L (3.5-5.1); Total Protein 7.4 gm/dl (6.0-8.3)
[2022-06-22 17:39] LABS: Thyroid Stimulating Hormone 6.178 uIu/ml (0.300-4.500)
[2022-06-22 18:18] LABS: T4 Free Thyroxine 1.08 ng/dl (0.61-1.60)
[2022-06-22] MEDS ORDERED: OPTIRAY 320 500ml IV ONE (19:19)
--- NOTE | 2022-06-22 19:42 | CT Scan Report ---
CT angio chest PE protocol CLINICAL HISTORY: PE TECHNIQUE: Multidetector row helical CT of the chest was performed with angiographic protocol. Ayala l and sagittal reformations were obtained. Coronal and sagittal MIPS were obtained from the axial mei a set and were submitted for review. Automated dose lowering techniques and/or adjustment according to patient size were utilized for this exam. CT DOSE: 250.86 mGy.cm Comparison: Comparison is made to chest radiograph 06/22/2022 FINDINGS: Lungs and pleura: Biapical scarring is seen. Groundglass and consolidative opacities are seen in the left upper lobe and to a lesser extent in the right upper lobe. Heart and pericardium: Heart size is normal. No pericardial effusion. Vessels: No evidence of pulmonary embolism. Mediastinum and valencia: Subcentimeter lymph nodes are seen. Chest wall and lower neck: Unremarkable. Abdomen: Unremarkable. Bones: Degenerative changes in the thoracic spine. IMPRESSION: No evidence of pulmonary embolus. Airspace opacities are seen in the left greater than right upper lo bes compatible with ACT 112: Negative or not required by law. Electronically signed by: Subhash Lopez M.D. 06/22/2022 7:40 PM
[2022-06-22] MEDS ORDERED: cefTRIAXone SODIUM 1,000 MG in DEXTROSE 5% AD-VAN 50 ML IV STA (21:18)
[2022-06-22] MEDS ORDERED: SODIUM CHLORIDE 0.9% 500 ML IV ONE (22:18)
[2022-06-22 22:33] LABS: Influenza A virus by PCR Negative (Neg); Influenza B virus by PCR Negative (Neg); RSV by PCR Negative (Neg); SARS CoV2 RNA(COVID-19) Ceph NEGATIVE (Negative)
--- NOTE | 2022-06-22 23:09 | History & Physical Report ---
Date of Service June 22, 2022 Assessment & Plan (1) Sepsis: Plan: Possible atypical pneumonia Improved on few days of outpatient cefdinir and azithromycin course Chest pain with troponin elevation Possible ACS hypertension Patient disputes diagnosis despite documentation on her medical records. Slightly elevated hyperlipidemia on statin Rx DM2 on oral medications, some elevation after recent steroid Rx, hemoglobin A1c of 6.1 from last year as per patient left breast cancer status post surgery, currently in remission past tobacco abuse PCU CS. Doxycycline in place of azithromycin given potential cardiac side effects from latter antibiotic. Aspirin for CAD prevention until definitively ACS ruled out Follow troponin IV Heparin if with subsequent troponin elevation for possible NSTEMI TTE, Cardiology consult Re: Chest pain with troponin elevation (Patient/family requesting for Dr. Patel who is already aware of patient's issues as per family.) N.p.o. until patient seen by Dr. Patel in anticipation of ischemic work-up Basal bolus insulin adjusted for n.p.o. status, ISS BG 1 10-1 40, check hemoglobin A1c DVT prophylaxis per Lovenox subcu Full code Patient daughter requesting updates from providers. Doreen Martinez, contact #[phone]. Text document was generated using [employer] voice recognition software. It may contain grammatical or spelling errors. Kindly contact undersigned for clarification of any documentation item in question. History of Present Illness Chief Complaint: Chest pain Primary Care Provider: Sol Jameson History obtained from patient, family, and records. Medical history significant for hypertension (patient disputes diagnosis), hyperlipidemia, DM2 on oral medications, left breast cancer status post surgery, past tobacco abuse. 3 weeks ago, patient noted generalized weakness, body aches, dry, congestion and shortness of breath symptoms. Denies aspiration. Possible COVID-19 exposure. Patient completed COVID-19 vaccination. Patient evaluated at [facility] ER 2 days ago. COVID-19 test was negative. No pneumonia on CXR. Patient discharged on prednisone, azithromycin, and cefdinir course for possible bronchitis. Improved cough symptoms although patient stopped prednisone Rx due to intolerance. Patient was driving her car today running errands with her when she experienced achy substernal discomfort without radiation. Some lightheadedness. Improved discomfort after aspirin administration. No prior episodes. Patient brought to the ER for evaluation Ceftriaxone given for possible pneumonia. Medical History as above Surgical History : Knee surgeries, cystoscopy, D&C, humeral fracture surgery, left mastectomy, breast cyst drainage, tonsillectomy/adenoidectomy Family History : Heart disease, lung cancer Personal/Social history : Past tobacco abuse, occasional EtOH intake, retired ER nurse Allergies Allergy/AdvReac Type Severity Reaction Status Date / Time epinephrine Allergy SVT Unverified 06/22/22 16:15 Home Medications Medication Instructions Recorded Confirmed Type cholecalciferol (vitamin D3) 50 50 mcg PO BID 06/20/22 06/22/22 History mcg (2,000 unit) tablet (Vitamin D3) losartan 50 mg tablet 50 mg PO QAM 06/20/22 06/22/22 History sitagliptin phosphate 50 mg tablet 50 mg PO DAILY 06/20/22 06/22/22 History (Januvia) Past Med/Surg History Medical History Hypertension Type 2 diabetes mellitus Family History Other Family history non-contributory Social History Smoking Status: Former smoker Preferred Language: Czech Communication Ability: Effective Feels Safe at Home: Yes Assistive Devices: None Review of Systems Review of Systems: As per HPI, all other systems reviewed and negative Physical Exam Physical Exam: GENERAL: Comfortable, slightly anxious, no respiratory distress SKIN: Normal color, warm HEENT: [place] palpebral conjunctivae, no ptosis, dry buccal mucosa NECK : Supple, no tenderness CHEST : Decreased breath sounds, no tenderness HEART : RRR, no obvious murmurs ABDOMEN: Some distention, nontender EXTREMITIES : No LE swelling/tenderness, no other conspicuous deformities noted NEUROLOGIC : Coherent, no facial asymmetry, no other gross focality Results & Data Results & Data ([facility]) Vital Signs (Past 12 Hours) Vital Signs Temp Pulse Resp BP Pulse Ox O2 Del Method 06/22/22 21:00 81 18 06/22/22 21:00 129/67 06/22/22 20:50 85 14 06/22/22 20:40 81 19 06/22/22 20:30 79 19 06/22/22 20:30 150/86 H 06/22/22 20:20 79 19 06/22/22 20:10 75 17 94 06/22/22 20:00 72 17 94 06/22/22 20:00 141/72 H 06/22/22 19:50 79 20 95 06/22/22 19:40 72 18 95 06/22/22 19:30 72 10 L 95 06/22/22 19:30 155/70 H 06/22/22 19:00 77 26 H 95 06/22/22 19:00 135/67 06/22/22 18:50 84 15 94 06/22/22 18:40 73 15 95 06/22/22 18:30 72 19 95 06/22/22 18:30 151/74 H 06/22/22 18:20 77 20 95 06/22/22 18:10 74 19 95 06/22/22 18:00 67 14 95 06/22/22 18:00 145/71 H 06/22/22 17:50 67 17 95 06/22/22 17:40 77 16 96 06/22/22 17:34 72 16 96 06/22/22 17:34 177/72 H 06/22/22 17:33 81 20 96 06/22/22 17:20 72 13 06/22/22 17:10 72 22 06/22/22 17:00 73 20 06/22/22 16:50 76 15 96 06/22/22 16:40 78 24 95 06/22/22 16:30 74 16 06/22/22 16:30 147/67 H 06/22/22 16:20 72 17 95 Room Air 06/22/22 16:10 78 16 96 Room Air 06/22/22 16:02 86 19 97 Room Air 06/22/22 16:02 36.8 C 94 H 18 181/78 H 96 Room Air Laboratory Results Laboratory Results WBC 17.01 K/ul (4.8-10.8) H 06/22/22 16:48 RBC 3.93 M/uL (3.93-5.22) 06/22/22 16:48 Hgb 12.7 g/dl (12.0-16.0) 06/22/22 16:48 Hct 37.3 % (34.1-44.9) 06/22/22 16:48 MCV 94.9 fL (80.0-100.0) 06/22/22 16:48 MCH 32.3 pg (25.0-34.0) 06/22/22 16:48 MCHC 34.0 g/dL (32.0-36.0) 06/22/22 16:48 RDW Std Deviation 39.2 fL (36.4-46.3) 06/22/22 16:48 RDW Coeff of Randy 11.2 % (11.5-14.5) L 06/22/22 16:48 Plt Count 357 K/uL (130-400) 06/22/22 16:48 MPV 9.0 fL (9.4-12.3) L 06/22/22 16:48 Immature Gran % (Auto) 0.8 % 06/22/22 16:48 Neut % (Auto) 76.0 % 06/22/22 16:48 Lymph % (Auto) 15.6 % 06/22/22 16:48 [place] % (Auto) 7.1 % 06/22/22 16:48 Eos % (Auto) 0.2 % 06/22/22 16:48 Baso % (Auto) 0.3 % 06/22/22 16:48 Neut # (Auto) 12.93 K/uL (1.4-6.5) H 06/22/22 16:48 Lymph # (Auto) 2.65 K/uL (1.2-3.4) 06/22/22 16:48 [place] # (Auto) 1.21 K/uL (0.24-0.82) H 06/22/22 16:48 Eos # (Auto) 0.03 K/uL (0-0.50) 06/22/22 16:48 Baso # (Auto) 0.05 K/uL (0-0.2) 06/22/22 16:48 Immature Gran # (Auto) 0.14 K/uL (0.00-0.02) H 06/22/22 16:48 D-Dimer 1850 ug/L FEU (0-500) H* 06/22/22 16:48 Sodium 139 mmol/L (136-145) 06/22/22 16:48 Potassium 3.8 mmol/L (3.5-5.1) 06/22/22 16:48 Chloride 104 mmol/L (98-107) 06/22/22 16:48 Carbon Dioxide 28 mmol/L (21-32) 06/22/22 16:48 Anion Gap 7 (3-11) 06/22/22 16:48 BUN 28 mg/dl (6-23) H 06/22/22 16:48 Creatinine 1.04 mg/dl (0.6-1.2) 06/22/22 16:48 Est Cr Clr Drug Dosing 36.6 ml/min 06/22/22 16:48 Est GFR ( Amer) 58.4 ml/min 06/22/22 16:48 Est GFR (Non-Af Amer) 50.3 ml/min 06/22/22 16:48 BUN/Creatinine Ratio 26.9 (10-20) H 06/22/22 16:48 Glucose 112 mg/dl (70-99(Fasting)) H 06/22/22 16:48 Calcium 9.4 mg/dl (8.5-10.1) 06/22/22 16:48 Magnesium 2.1 mg/dl (1.7-2.4) 06/22/22 16:48 Total Bilirubin 0.3 mg/dl (0.2-1.0) 06/22/22 16:48 AST 26 U/L (13-39) 06/22/22 16:48 ALT 25 U/L (7-52) 06/22/22 16:48 Alkaline Phosphatase 80 U/L (34-104) 06/22/22 16:48 Troponin I High Sens 15.2 pg/ml (0-14) H 06/22/22 16:48 B-Natriuretic Peptide 275 pg/ml (0-100) H 06/22/22 16:48 Total Protein 7.4 gm/dl (6.0-8.3) 06/22/22 16:48 Albumin 3.8 gm/dl (3.4-5.0) 06/22/22 16:48 Globulin 3.6 gm/dl (2.5-4.0) 06/22/22 16:48 Albumin/Globulin Ratio 1.1 (0.9-2) 06/22/22 16:48 Lipase 27 U/L (11-82) 06/22/22 16:48 Procalcitonin < 0.05 ng/ml (0-0.5) 06/22/22 16:48 TSH 6.178 uIu/ml (0.300-4.500) H 06/22/22 16:48 Free T4 1.08 ng/dl (0.61-1.60) 06/22/22 16:48 SARS-CoV-2 (PCR) NEGATIVE (Negative) 06/22/22 21:21 Influenza Type A (PCR) Negative (Neg) 06/22/22 21:21 Influenza Type B (PCR) Negative (Neg) 06/22/22 21:21 RSV (RT-PCR) Negative (Neg) 06/22/22 21:21 Impressions Chest X-Ray 06/22/22 16:22 XR chest 1V portable HISTORY: chest pressure COMPARISON: Chest 06/20/2022. FINDINGS: No pneumothorax. No pleural effusions. No pneumothorax. No pleural effusions. No focal lung consolidations to suggest a pneumonia. No evidence for pulmonary edema. The heart is normal in size. Degenerative changes again noted within the shoulders. IMPRESSION: No acute process. ACT 112: Negative or not required by law. Electronically signed by: Saturnino Moseley M.D. 06/22/2022 5:14 PM Chest CTA 06/22/22 18:08 CT angio chest PE protocol CLINICAL HISTORY: PE TECHNIQUE: Multidetector row helical CT of the chest was performed with angiographic protocol. Coronal and sagittal reformations were obtained. Coronal and sagittal MIPS were obtained from the axial data set and were submitted for review. Automated dose lowering techniques and/or adjustment according to patient size were utilized for this exam. CT DOSE: 250.86 mGy.cm Comparison: Comparison is made to chest radiograph 06/22/2022 FINDINGS: Lungs and pleura: Biapical scarring is seen. Groundglass and consolidative opacities are seen in the left upper lobe and to a lesser extent in the right upper lobe. Heart and pericardium: Heart size is normal. No pericardial effusion. Vessels: No evidence of pulmonary embolism. Mediastinum and valencia: Subcentimeter lymph nodes are seen. Chest wall and lower neck: Unremarkable. Abdomen: Unremarkable. Bones: Degenerative changes in the thoracic spine. IMPRESSION: No evidence of pulmonary embolus. Airspace opacities are seen in the left greater than right upper lobes compatible with ACT 112: Negative or not required by law. Electronically signed by: Subhash Lopez M.D. 06/22/2022 7:40 PM Diagnostic Findings EKG as per my interpretation :Rate 80, NSR, normal axis, no ischemia, PVCs
[2022-06-23] MEDS ORDERED: ACETAMINOPHEN 325 MG TAB PO PRN (00:32)
[2022-06-23] MEDS ORDERED: GLUCOSE 10 TAB/TUBE PO PRN (00:32)
[2022-06-23] MEDS ORDERED: GLUCAGON FOR INJ 1 MG VIAL SQ PRN (00:32)
[2022-06-23] MEDS ORDERED: CARBOHYDRATES FOR HYPOGLYCEMIA PO PRN (00:32)
[2022-06-23] MEDS ORDERED: DEXTROSE 50% 50 ML SYRINGE IV PRN (00:32)
[2022-06-23] MEDS ORDERED: traMADol HCL 50 MG TABLET PO PRN (00:32)
[2022-06-23] MEDS ORDERED: NITROGLYCERIN SL 0.4 MG/TAB TAB SL PRN (00:32)
[2022-06-23] MEDS ORDERED: PROMETHAZINE HCL 6.25 MG in SODIUM CHLORIDE 0.9% 50 ML IV PRN (00:32)
[2022-06-23] MEDS ORDERED: GLUCOSE 40% GEL 15 GM TUBE PO PRN (00:32)
[2022-06-23 00:36] LABS: Partial Thromboplastin Ratio 0.9; Partial Thromboplastin Time 25.6 Seconds (21.0-31.0)
[2022-06-23] MEDS: INSULIN ASPART PER UNIT SC SCH ×3 (01:34→13:37)
[2022-06-23] MEDS: SODIUM CHLORIDE 0.9% 500 ML IV SCH (02:01)
[2022-06-23 06:07] LABS: Basophils # (auto) 0.06 K/uL (0-0.2); Basophils % (auto) 0.5 %; Eosinophils # (auto) 0.05 K/uL (0-0.50); Eosinophils % (auto) 0.4 %; Hematocrit (blood only) 31.9 % (34.1-44.9); Immature Granulocytes # (auto) 0.13 K/uL (0.00-0.02); Immature Granulocytes % (auto) 1.1 %; Lymphocytes # (auto) 2.85 K/uL (1.2-3.4); Lymphocytes % (auto) 23.7 %; Mean Corpuscular Hemoglobin 32.4 pg (25.0-34.0); Mean Corpuscular Hgb Conc 34.5 g/dL (32.0-36.0); Mean Corpuscular Volume 94.1 fL (80.0-100.0); Mean Platelet Volume 9.2 fL (9.4-12.3); Monocytes # (auto) 1.05 K/uL (0.24-0.82); Monocytes % (auto) 8.7 %; Neutrophils # (auto) 7.91 K/uL (1.4-6.5); Neutrophils % (auto) 65.6 %; Platelet Count 313 K/uL (130-400); RDW Coefficient of Variation 11.3 % (11.5-14.5); RDW Standard Deviation 38.5 fL (36.4-46.3); Red Blood Count 3.39 M/uL (3.93-5.22); White Blood Count 12.05 K/ul (4.8-10.8)
[2022-06-23 07:04] LABS: BUN Creatinine Ratio 29.3 (10-20); Calcium 8.4 mg/dl (8.5-10.1); Creatinine Clr Calc Pharmacy 46.5 ml/min; Est GFR (African American) 77.8 ml/min; Est GFR (Non-African American) 67.1 ml/min; Potassium 4.3 mmol/L (3.5-5.1)
[2022-06-23 08:27] LABS: Estimated Average Glucose 154 mg/dl
[2022-06-23] MEDS ORDERED: DOXYCYCLINE HYCLATE 100 MG CAP PO SCH (09:00)
[2022-06-23] MEDS ORDERED: ASPIRIN 81 MG ECTAB PO SCH (09:00)
[2022-06-23] MEDS ORDERED: LOSARTAN POTASSIUM 50 MG TAB PO SCH (09:00)
[2022-06-23] MEDS ORDERED: ENOXAPARIN INJ 30 MG/0.3 ML SYR SQ SCH (09:00)
--- NOTE | 2022-06-23 13:18 | Cardiology Consultation ---
Date of Consultation June 23, 2022 Assessment & Plan (1) Atypical pneumonia: 2. Chest pain/minimally elevated troponin 3. Elevated BNP 4. Mild to moderate MR 5. Moderate AI 6. Hypertension/mild concentric LVH 7. Anemia 8. Type 2 diabetes Patient with very minimally elevated troponin that has down-trended. No EKG changes and no wall motion abnormalities on echo. Patient's chest pain is not secondary to ACS and do not feel needs additional ischemic testing while admitted. BNP was also elevated on presentation but no signs of heart failure on exam/chest x-ray and estimated filling pressures on echo normal. Presenting symptoms not secondary to heart failure. On echo patient does have newly recognized mild to moderate aortic insufficiency and mitral regurgitation. Will need periodic outpatient surveillance. From a cardiac standpoint okay for discharge today with continued ASCVD risk factor modification. Will arrange cardiac follow-up within the next month. History of Present Illness Attending Physician: Shemar Biswas MD History of Present Illness Mrs. Thomson is a very pleasant 82-year-old woman with a history of type 2 diabetes, hypertension seen while admitted for chest pain, minimally elevated troponin. Patient with no prior cardiac history. 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 She reports feeling generally unwell, fatigued for the last 3 weeks. Reports associated cough/URI symptoms without fevers or chills over this time. Pro gressive symptoms led to ED presentation 06/20/2022. HS TropI, ECG unremarkable. Treated for possible bronchitis/possible CAP. Return to ED 2 days later after developed chest pressure while driving. Pressure again accompanied by generally feeling unwell and at its worst was a 5 out of 10. No significant shortness of breath, presyncope. Chest discomfort had largely resolved by arrival to ED. Normal O2 sats on room air, afebrile, blood pressures 130s to 180s. ECG again unremarkable. HS TropI at upper limits of normal, 15 and is trended down to 12. BNP elevated at >200. Chest x-ray unremarkable. WBC 17, procalcitonin negative. D-dimer elevated at 1800. CTA negative for PE/aneurysm/dissection. Had minimal coronary calcifications. CT also noted left upper lobe infiltrate. Treated for possible atypical pneumonia with ceftriaxone, now doxycycline. This morning patient reports feeling fine. No additional chest pain. Breathing comfortably. No fatigue lying in bed. Echo this morning showed mild LVH, EF 60%, mild to moderate MR, mild PI, moderate AI. Normal estimated PA/RA pressures. Allergies Allergy/AdvReac Type Severity Reaction Status Date / Time epinephrine Allergy SVT Unverified 06/22/22 16:15 Home Medications Medication Instructions Recorded Confirmed Type cholecalciferol (vitamin D3) 50 50 mcg PO BID 06/20/22 06/22/22 History mcg (2,000 unit) tablet (Vitamin D3) losartan 50 mg tablet 50 mg PO QAM 06/20/22 06/22/22 History sitagliptin phosphate 50 mg tablet 50 mg PO DAILY 06/20/22 06/22/22 History (Januvia) Patient History Medical History Hypertension Type 2 diabetes mellitus Family History Other Family history non-contributory Social History Smoking Status: Former smoker Second Hand Exposure: No; Do You Dip or Chew Tobacco: No; Tobacco Cessation Education Requested by Patient: No Hx Alcohol Use: No Hx Substance Use: No Preferred Language: Marshallese Communication Ability: Effective [employer] Required: No Beliefs That Will Affect Care: None Current Living Situation: Spouse Other Information That Helps Us Care for You: No Feels Safe at Home: Yes Safety Concerns: Feels Safe At This Time Assistive Devices: Denture - Upper Review of Systems Review of Systems: All systems reviewed & are unremarkable except as noted in HPI & below Physical Exam Physical Exam: General: Comfortable HEENT: Sclerae anicteric Lungs: Clear to auscultation bilaterally, no crackles or wheezes Cardiac: Regular rate and rhythm, faint diastolic murmur at right upper sternal border, 2 out of 6 holosystolic murmur at apex. No JVD Vascular: 2+ radial, DP pulses. No bruits Abdomen: Soft, nontender Extremities: Well perfused, no peripheral edema Neuro: Nonfocal Psych: Alert orient x3, normal affect and mood Results & Data ([facility]) Vital Signs (Past 12 Hours) Vital Signs Temp Pulse Pulse Resp BP BP Pulse Ox 06/23/22 12:00 88 22 93 06/23/22 11:30 87 17 93 06/23/22 11:00 89 17 94 06/23/22 10:30 74 21 93 06/23/22 10:00 73 14 93 06/23/22 09:30 78 13 96 06/23/22 09:00 65 15 93 06/23/22 08:30 72 12 95 06/23/22 08:01 71 14 96 06/23/22 08:01 165/76 H 06/23/22 08:00 73 15 97 06/23/22 07:30 71 18 94 06/23/22 07:00 71 17 93 06/23/22 08:03 97.9 F 67 14 165/76 H 96 06/23/22 05:37 78 12 153/79 H 95 O2 Del Method 06/23/22 12:00 06/23/22 11:30 06/23/22 11:00 06/23/22 10:30 06/23/22 10:00 06/23/22 09:30 06/23/22 09:00 06/23/22 08:30 06/23/22 08:01 06/23/22 08:01 06/23/22 08:00 06/23/22 07:30 06/23/22 07:00 06/23/22 08:03 Room Air 06/23/22 05:37 Room Air PG Care Time/CCT Total # of Minutes Spent Total Time Spent with Patient: Total time spent is greater than 50% in coordination of care (as documented) at patient's floor/unit and/or counseling patient: Coding Level of Care Code 17220 INT INP/OBS CARE 3/75MIN Diagnoses Atypical pneumonia J18.9
--- NOTE | 2022-06-23 13:34 | Hospitalist Progress Note ---
Date of Service June 23, 2022 Assessment & Plan (1) Sepsis: Plan: Possible atypical pneumonia Improved on few days of outpatient cefdinir and azithromycin course Recently finished a course of antibiotic as an OP Will continue Oral Doxycycline for the next 8 days Chest pain with troponin elevation Possible ACS-No ACS REceived IV heparin-discontinued ECHO-Unremarkable.Normal LV size with borderline LV hypertrophy.EF 55 - 60%.NO valvular abnormality Appreciate Cardiology input and recommendation Aspirin will be given on discharge Will be discharged this afternoon Hypertension Patient disputes diagnosis despite documentation on her medical records. Slightly elevated Remains stable Hyperlipidemia on statin Rx DM2 on oral medications, some elevation after recent steroid Rx, hemoglobin A1c of 6.1 from last year as per patient Basal bolus insulin adjusted for n.p.o. status, ISS BG 1 10-1 40, check hemoglobin A1c Left breast cancer status post surgery, currently in remission Past tobacco abuse DVT prophylaxis per Lovenox subcu Full code Patient daughter requesting updates from providers. Ms. Doreen Martinez, contact #[phone]. Admission and Anticipated Discharge Date Admission Date: June 22, 2022 Subjective 06/23/2022 The patient was seen and examined in ICU in setting of telemetry unit She denies any symptoms and she was evaluated by the funder Her cough is better and no shortness of breath at rest She does not have any fever and no chills Review of Systems Review of Systems: All systems reviewed and are unremarkable except as noted below Respiratory: No respiratory symptoms Cardiovascular: Additional Comments: No more chest pain and/or palpitation Physical Exam Physical Exam: Lying in bed comfortably Constitutional: well developed, well nourished and average body habitus; not ill appearing Eyes: PERRL, conjunctivae normal, anicteric sclerae ENMT: external ear and nose normal, oropharynx normal Neck: trachea midline, no thyromegaly Respiratory: no respiratory distress Auscultation: lungs clear to auscultation bilaterally Cardiovascular: Rate/Rhythm: regular rate and regular rhythm; not tachycardic Heart Sounds: normal S1 and normal S2; no murmur Extremities: no edema Gastrointestinal (Abdomen): Inspection/Auscultation: normal bowel sounds; abdomen not distended Percussion/Palpation: abdomen soft; abdomen nontender Musculoskeletal: No acute arthritis involving any joint Neurologic: Alert, awake and oriented x3. No focal sensory or motor deficit appreciated Psychiatric: A+Ox3, euthymic affect Lymphatic: no cervical or axillary lymphadenopathy Results & Data Results & Data ([facility]) Vital Signs (Past 12 Hours) Vital Signs Temp Pulse Pulse Resp BP BP Pulse Ox 06/23/22 13:00 06/23/22 13:03 81 18 143/67 H 94 06/23/22 12:00 88 22 93 06/23/22 11:30 87 17 93 06/23/22 11:00 89 17 94 06/23/22 10:30 74 21 93 06/23/22 10:00 73 14 93 06/23/22 09:30 78 13 96 06/23/22 09:00 65 15 93 06/23/22 08:30 72 12 95 06/23/22 08:01 71 14 96 06/23/22 08:01 165/76 H 06/23/22 08:00 73 15 97 06/23/22 07:30 71 18 94 06/23/22 07:00 71 17 93 06/23/22 08:03 36.6 C 67 14 165/76 H 96 06/23/22 05:37 78 12 153/79 H 95 O2 Del Method 06/23/22 13:00 Room Air 06/23/22 13:03 Room Air 06/23/22 12:00 06/23/22 11:30 06/23/22 11:00 06/23/22 10:30 06/23/22 10:00 06/23/22 09:30 06/23/22 09:00 06/23/22 08:30 06/23/22 08:01 06/23/22 08:01 06/23/22 08:00 06/23/22 07:30 06/23/22 07:00 06/23/22 08:03 Room Air 06/23/22 05:37 Room Air Laboratory Results Short CBC 06/23/22 Range/Units 05:27 WBC 12.05 H (4.8-10.8) K/ul Hgb 11.0 L (12.0-16.0) g/dl Hct 31.9 L (34.1-44.9) % Plt Count 313 (130-400) K/uL BMP 06/22/22 06/23/22 16:48 05:27 Sodium 139 138 Potassium 3.8 4.3 Chloride 104 105 Carbon Dioxide 28 28 BUN 28 H 24 H Creatinine 1.04 0.82 Glucose 112 H 111 H Calcium 9.4 8.4 L Liver Function 06/22/22 Range/Units 16:48 Total Bilirubin 0.3 (0.2-1.0) mg/dl AST 26 (13-39) U/L ALT 25 (7-52) U/L Alkaline Phosphatase 80 (34-104) U/L Albumin 3.8 (3.4-5.0) gm/dl
--- NOTE | 2022-06-23 17:58 | XCELERA ---
[id number]
--- NOTE | 2022-06-24 06:48 | Electrocardiogram Report ---
Test Reason : Blood Pressure : / mmHG Vent. Rate : 078 BPM Atrial Rate : 078 BPM P-R Int : 136 ms QRS Dur : 076 ms QT Int : 394 ms P-R-T Axes : 061 072 064 degrees QTc Int : 449 ms Sinus rhythm with occasional Premature ventricular complexes When compared with ECG of 20-JUN-2022 14:48, Premature ventricular complexes are now Present Confirmed by Noel Cochran ([id number]) on 06/24/2022 6:48:15 AM Referred By: REFERRED SELF Confirmed By:Noel Cochran
--- NOTE | 2022-06-24 07:46 | Discharge Summary ---
Date of Service June 23, 2022 Admission HPI Per Admitting Provider History obtained from patient, family, and records. Medical history significant for hypertension (patient disputes diagnosis), hyperlipidemia, DM2 on oral medications, left breast cancer status post surgery, past tobacco abuse. 3 weeks ago, patient noted generalized weakness, body aches, dry, congestion and shortness of breath symptoms. Denies aspiration. Possible COVID-19 exposure. Patient completed COVID-19 vaccination. Patient evaluated at [facility] ER 2 days ago. COVID-19 test was negative. No pneumonia on CXR. Patient discharged on prednisone, azithromycin, and cefdinir course for possible bronchitis. Improved cough symptoms although patient stopped prednisone Rx due to intolerance. Patient was driving her car today running errands with her when she experienced achy substernal discomfort without radiation. Some lightheadedness. Improved discomfort after aspirin administration. No prior episodes. Patient brought to the ER for evaluation Ceftriaxone given for possible pneumonia. Medical History as above Surgical History : Knee surgeries, cystoscopy, D&C, humeral fracture surgery, left mastectomy, breast cyst drainage, tonsillectomy/adenoidectomy Family History : Heart disease, lung cancer Personal/Social history : Past tobacco abuse, occasional EtOH intake, retired ER nurse Admission Exam Per Admitting Provider Physical Exam: GENERAL: Comfortable, slightly anxious, no respiratory distress SKIN: Normal color, warm HEENT: [place] palpebral conjunctivae, no ptosis, dry buccal mucosa NECK : Supple, no tenderness CHEST : Decreased breath sounds, no tenderness HEART : RRR, no obvious murmurs ABDOMEN: Some distention, nontender EXTREMITIES : No LE swelling/tenderness, no other conspicuous deformities noted NEUROLOGIC : Coherent, no facial asymmetry, no other gross focality Principal Diagnosis Atypical pneumonia, chest pain no ACS, hypertension, type 2 diabetes Discharge Exam Lying in bed comfortably Constitutional well developed, well nourished and average body habitus; not ill appearing Eyes PERRL, conjunctivae normal, anicteric sclerae ENMT external ear and nose normal, oropharynx normal Neck trachea midline, no thyromegaly Respiratory no respiratory distress Auscultation: lungs clear to auscultation bilaterally Cardiovascular Rate/Rhythm: regular rate and regular rhythm; not tachycardic Heart Sounds: normal S1 and normal S2; no murmur Extremities: no edema Gastrointestinal (Abdomen) Inspection/Auscultation: normal bowel sounds; abdomen not distended Percussion/Palpation: abdomen soft; abdomen nontender Psychiatric A+Ox3, euthymic affect Lymphatic no cervical or axillary lymphadenopathy Discharge Data Allergies Allergy/AdvReac Type Severity Reaction Status Date / Time epinephrine Allergy SVT Unverified 06/22/22 16:15 Consultations 06/22/22 22:34 ED Decision to Admit Stat 06/23/22 00:32 Consult Cardiology Routine Ordered Studies 06/22/22 18:08 CT angio chest PE protocol Stat Hospital Course (1) Sepsis: Possible atypical pneumonia Improved on few days of outpatient cefdinir and azithromycin course Recently finished a course of antibiotic as an OP Will continue Oral Doxycycline for the next 8 days Chest pain with troponin elevation Possible ACS-No ACS REceived IV heparin-discontinued ECHO-Unremarkable.Normal LV size with borderline LV hypertrophy.EF 55 - 60%.NO valvular abnormality Appreciate Cardiology input and recommendation Aspirin will be given on discharge Will be discharged this afternoon Hypertension Patient disputes diagnosis despite documentation on her medical records. Slightly elevated Remains stable Hyperlipidemia on statin Rx DM2 on oral medications, some elevation after recent steroid Rx, hemoglobin A1c of 6.1 from last year as per patient Basal bolus insulin adjusted for n.p.o. status, ISS BG 1 10-1 40, check hemoglobin A1c Left breast cancer status post surgery, currently in remission Past tobacco abuse DVT prophylaxis per Lovenox subcu Full code Patient daughter requesting updates from providers. Ms. Doreen Martinez, contact #[phone]. Total Time Total Time Spent Total Time Spent (In Minutes): 35 minutes Discharge Plan Discharge Items Patient Disposition: Home - Self-Care Reason For Visit: SEPSIS, TROP ELEV Discharge Diagnosis: Atypical pneumonia, chest pain no ACS, hypertension, type 2 diabetes Condition on Discharge: Good Activity: Resume your previous activity Non-emergency contact: Primary Care Provider Call non-emergency contact if: you have any medication questions and your symptoms worsen Follow-up/Referrals: Sol Jameson [Primary Care Provider] - (Please make an appointment with your primary care provider within 7 days) Diet: Carb Consistent or DM2 and Heart Healthy Addtl Attending Provider Instructions: Please take precautions to avoid fall Finish the course of antibiotic Please give appointment with your healthcare provider Pending Studies at Discharge: No Stand-Alone Forms: [employer], Smoking Cessation Medications and DC Order Prescriptions: New doxycycline hyclate 100 mg Capsule 100 mg PO BID 8 Days Qty: 16 0RF aspirin 81 mg Tablet,Delayed Release (Dr/Ec) 81 mg PO QAM 30 Days Qty: 30 0RF benzonatate 100 mg capsule 100 mg PO TID Qty: 30 0RF Continued losartan 50 mg tablet 50 mg PO QAM Januvia 50 mg tablet 50 mg PO DAILY cholecalciferol (vitamin D3) [Vitamin D3] 50 mcg (2,000 unit) Tablet 50 mcg PO BID Discharge Orders: Discharge Order (Routine); Ordered 06/23/22 Ordered By: Shemar Bagley/Other Patient Handouts: Symptoms of a Heart Attack, Managing Type 2 Diabetes, What Is Pneumonia?, Preventing Pneumonia, Treating Pneumonia Admission Data Admit Date/Time: 06/22/22 23:12 Attending Provider: Shemar Biswas Admit Provider: Nathan Day Primary Care Provider: Sol Jameson Other Providers: Nathan aDy ; Neal Patel Other Interventions: Discharge Summary Assessment (RN) Last Done: 06/23/22 13:50
--- NOTE | 2022-06-25 06:05 | Electrocardiogram Report ---
Test Reason : Blood Pressure : / mmHG Vent. Rate : 083 BPM Atrial Rate : 083 BPM P-R Int : 136 ms QRS Dur : 076 ms QT Int : 376 ms P-R-T Axes : 063 061 058 degrees QTc Int : 441 ms Normal sinus rhythm Minimal voltage criteria for LVH, may be normal variant Borderline ECG When compared with ECG of 22-JUN-2022 16:49, Premature ventricular complexes are no longer Present Confirmed by Noel Cochran ([id number]) on 06/25/2022 6:05:22 AM Referred By: REFERRED SELF Confirmed By:Noel Cochran
== END 2022-06-23 14:44 | disposition home or self-care (01) | DRG 871 ==
LOC: ED 15:48 → EDINP 23:12 → INTOOBSV 23:12 → 1E 06-23 00:31
DX: E78.5 Hyperlipidemia, unspecified; Z87.891 Personal history of nicotine dependence; D64.9 Anemia, unspecified; Z20.822 Contact with and (suspected) exposure to COVID-19; R07.9 Chest pain, unspecified; I08.0 Rheumatic disorders of both mitral and aortic valves; A41.9 Sepsis, unspecified organism; E11.9 Type 2 diabetes mellitus without complications; I10 Essential (primary) hypertension; J18.9 Pneumonia, unspecified organism